=== PATIENT | male | born 2000 | race African-American/Black ===

== ENCOUNTER 2019-03-04 13:32 | Emergency (ER) | payer SELFPAY ==
[~2019-03-04] VITALS: Ht 177.8 cm; Wt 63.5 kg
[2019-03-04 13:32] VITALS: BP 129/82
--- NOTE | 2019-03-04 13:32 | NUR ---
PATIENT BIB EMS TO ER BED 10.
[2019-03-04 13:33] VITALS: BP 129/82
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
--- NOTE | 2019-03-04 13:48 | NUR ---
PD AT BEDSIDE.
--- NOTE | 2019-03-04 14:00 | NUR ---
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 FACIAL SYMMETRY. PUPILS JOSE. GCS 15. AA0X4. PT CALM AND MEMORY INTACT.
--- NOTE | 2019-03-04 14:00 | NUR ---
DR BROWN AT BEDSIDE
[2019-03-04] MEDS ORDERED: traMADol 50 MG TAB PO ONE (14:05)
[2019-03-04] MEDS ORDERED: IBUPROFEN 600 MG TAB PO ONE (14:05)
--- NOTE | 2019-03-04 15:10 | NUR ---
PT AT XRAY
--- NOTE | 2019-03-04 15:21 | NUR ---
PT RETURNED FROM XRAY
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
--- NOTE | 2019-03-04 16:04 | NUR ---
FAMILY AT BEDSIDE TO DRIVE PT HOME
--- NOTE | 2019-03-04 16:12 | NUR ---
PT LEFT WITHOUT DISCHARGE INSTRUCTIONS. STATES HIS RIDE NEEDS TO GO TO WORK. PT AMBULATORY WITH CRUTCHES. AA0X4.
== END 2019-03-04 16:12 | disposition left against medical advice (07) ==
LOC: MED 13:32
DX: S83.92XA Sprain of unspecified site of left knee, initial encounter (principal); V49.40XA Driver injured in collision with unspecified motor vehicles in traffic accident, initial encounter; Y93.89 Activity, other specified; Y92.410 Unspecified street and highway as the place of occurrence of the external cause; Y99.8 Other external cause status
CPT/HCPCS: 29505; 71046; 72040; 73562; 99283